=== PATIENT | female | born 1955 | race Caucasian/White ===

== ENCOUNTER 2019-05-20 15:21 | Observation (INO) | payer MEDICARE, SELFPAY ==
[2019-05-17 11:15] VITALS: BMI 30.8
--- NOTE | 2019-05-17 11:31 | ECG_ITS ---
Measurements Intervals [place] Rate: 70 P: 50 MI: 141 QRS: 11 QRSD: 86 T: 68 QT: 353 QTc: 383 SINUS RHYTHM POSSIBLE RIGHT VENTRICULAR CONDUCTION DELAY [RSR (QR) IN V1/V2] No previous ECG available for comparison Electronically Signed On 05-17-2019 15:08:35 METAL PATTERNMAKER by Bee Tompkins M.D. [email or web address]
--- NOTE | 2019-05-17 12:17 | ANES.PREANES ---
Pre-Anesthetic Assessment Pre-Anesthetic Assessment: Height/Weight: Height 1.78 m Weight 97.522 kg Proposed Procedure: Operation Date: 05/20/19 13:05 Proposed Procedures p Dorsal Column Stimulator Insertion(Not Applicable) - Ronan Livingston MD Social: Social History: Alcohol and No tobacco Exam: Pre-Anes Outpt Exam: alert, oriented x 3, clear to auscultation bilaterally and regular rate & rhythm Airway: Submandibular: WNL Cervical ROM: Other (very poor) MP: 2 Dentition: Partials History/ROS: No significant history except as noted CV/HEM: CV/HEM: Afib Musc/skel: Musc/skel: Lower Back Pain Anesthetic Plan: ASA status: II Anesthesia: MAC Risk of > 500 ml blood loss (7ml/kg in children): No PFSH Anesthesia PFSH: Medical History (Updated 05/17/19 @ 12:18 by Seng Kline MD) Atrial fibrillation and flutter (Acute) CAD (coronary artery disease) (Acute) Cervical disc disorder with myelopathy of mid-cervical region (Acute) Cervical disc disorder with radiculopathy, unspecified cervical region (Acute) Hyperlipidemia (Acute) Intervertebral disc disorder with radiculopathy of lumbar region (Acute) Intervertebral disc disorder with radiculopathy of lumbosacral region (Acute) Lumbar back pain (Acute) Lumbar disc disease (Acute) Neck muscle spasm (Acute) Stenosis of cervical spine with myelopathy (Acute) Surgical History (Updated 05/17/19 @ 12:18 by Seng Kline MD) History of arthroscopy of right shoulder (Acute) History of bunionectomy of left great toe (Acute) History of fusion of cervical spine (Acute) History of hysterectomy (Acute) History of orthopedic surgery (Acute) History of tonsillectomy and adenoidectomy (Acute) History of tubal ligation (Acute) Family History (Updated 05/17/19 @ 10:48 by [employer]) Father Diabetes Hypertension Hyperlipidemia Mother Hyperlipidemia Social History (Updated 05/17/19 @ 10:49 by [employer]) Smoking and tobacco status: never smoked Alcohol intake: current Alcohol intake frequency: few times a week Alcohol type: wine Substance/Drug Use: never Data Anesthesia Cardiac Studies: No Data to Display
[2019-05-20] VITALS (17 sets, daily range): BP systolic 133–152; BP diastolic 75–97; PULSE 74–87; RESP 12–20; TEMP 36.3–36.9; O2SAT 89–100
--- NOTE | 2019-05-20 | SCC_ITS ---
PROCEDURE PERFORMED: 1. Thoracic laminotomy with placement of intraspinal, epidural paddle electrode arrays ([employer] CoverEdge 32 instructor adjunct surgical technician). 2. Placement of subcutaneous programmable pulse generator with connection to intraspinal epidural electrode arrays ([employer] Spectra WaveWriter). 30.6 seconds of fluoroscopic guidance, for a cumulative dose of 7.66mGy, was provided to Dr. Livingston by the radiology department. C-arm images of the Lumbar spine were saved for the patient's permanent record. PRINCE
--- NOTE | 2019-05-20 | XR_ITS ---
WS: [id number] Lumbar spine and lower thoracic spine C-arm images, 05/20/2019, Clinical Data: DORSAL COLUMN STIMULATOR Comparison: None. Findings: The stimulator wires have been inserted ending in the superior aspect of the T8 vertebral body. 30.6 seconds of fluoroscopy time was utilized. XR/XR lumbar spine 1V 09141 Impression: Insertion of dorsal thoracic epidural stimulator wires.
--- NOTE | 2019-05-20 10:18 | P.DS_ITS ---
Discharge Providers Date of Admission: 05/20/19 15:21 Date of Discharge: 05/20/19 Attending Provider at Admission: Ronan Livingston Attending Provider at Discharge: Ronan Livingston Diagnoses at Discharge Discharge Diagnosis (1) Intervertebral disc disorder with radiculopathy of lumbar region: Status: Acute Problem details: Patient is doing well after thoracic laminotomy for placement of intraspinal, epidural paddle electrode arrays and placement of subcutaneous programmable pulse generator performed earlier today (05/20/2019). She is requesting discharge home this evening. Reason for Visit Reason for Visit: Reason For Visit: Intervertebral Disc Disorder With Radiculopathy Bas[place] Brief History: The patient is a 64-year-old female with refractory back, tailbone, and predominantly left lower extremity pain complaint s. She underwent an extensive imaging workup. Conservative treatment trials failed to provide adequate lasting symptom relief. She obtained marked relief of chronic low back and lower extremity pain during a percutaneous trial of thoracic spinal cord stimulation. After review of the diagnostic and treatment options with the risks/potential benefits/rationale for each, the patient requested to proceed with placement of epidural paddle electrode arrays and a subcutaneous programmable pulse generator for chronic spinal cord stimulation therapy. Hospital Course Hospital Course: Patient underwent thoracic laminotomy with placement of intraspinal, epidural paddle electrode arrays and placement of subcutaneous programmable pulse generator on 05/20/2019. She tolerated the procedure well. She noted relief of chronic lower extremity pain with postoperative use of the device. She completed perioperative intravenous antibiotic doses. She was ambulatory, voiding, and tolerating regular diet prior to requested discharge home on the evening of the date of surgery. Physical Exam Const: GENERAL APPEARANCE: cooperative ORIENTATION/CONSCIOUSNESS: Yes awake Neck/C-Spine: COMMON NORMALS: supple Resp: COMMON NORMALS: normal respiratory effort; negative for no use of accessory muscles Back/Pelvis: BACK IMAGE (FEMALE): 1. Surgical site 2. Surgical site Neuro: COMMON NORMALS: moves all extremities and no focal motor deficits Psych: COMMON NORMALS: thought process normal and speech normal ATTITUDE: Yes calm and Yes engaged ACTIVITY/MOTOR BEHAVIOR: Yes appropriate eye contact SPEECH: Yes normal speech MOOD & AFFECT: Yes euthymic mood THOUGHT PROCESS: normal thought process INSIGHT: insight good JUDGEMENT: judgment good Skin: WOUNDS: Yes surgical site (Surgical site dressings clean/dry/intact) Discharge Data Data Completed and Pending: Completed Studies During Hospitalization Category Date Time Status XR lumbar spine 1 V 74293 Routine Exams 05/20/19 Completed Procedures Performed: Thoracic laminotomy with placement of intraspinal, epidural paddle electrode arrays ([employer] CoverEdge 32 director medical surgical). Placement of subcutaneous programmable pulse generator ([employer] WaveWriter). Intravenous antibiotics. Vitals: Last Vital Signs Temp 97.7 F 05/20/19 19:38 Pulse 87 05/20/19 19:38 Resp 18 05/20/19 19:38 BP 138/82 05/20/19 19:38 Pulse Ox 95 05/20/19 19:38 Discharge Plan Discharge Patient Disposition: Home, Self-Care Condition: Stable Prescriptions: New hydrocodone-acetaminophen 10-325 mg Tablet 1 tab PO TID PRN (Reason: Pain) Qty: 20 RF: 0 Continued cyclobenzaprine 10 mg tablet 10 mg PO DAILY RF: 0 tizanidine 4 mg tablet 4 mg PO DAILY RF: 0 acyclovir 200 mg capsule 200 mg PO BID RF: 0 ezetimibe 10 mg tablet 10 mg PO DAILY RF: 0 Curcumin 500 mg PO DAILY RF: 0 Vitamin C 1,000 mg PO DAILY RF: 0 acai oneal extract 1,000 mg PO DAILY RF: 0 turmeric 500 mg PO DAILY RF: 0 Discontinued hydrocodone-acetaminophen 10-325 mg tablet 1 tab PO BID RF: 0 Discharge Orders: Discharge Order (Routine); Ordered 05/20/19 Ordered By: Ronan Livingston Referrals: Ronan Livingston MD [Primary Care Provider] - 2 weeks (PLEASE CALL DR. HOLDEN OFFICE TOMORROW MORNING TO SET UP A FOLLOW UP APPOINTMENT.) Discharge Diet: Usual diet Discharge Activity: Limit activity as instructed Patient Instructions: Surgical Site Infections (GEN) Activity Restrictions/Additional Instructions: Followup in 2 weeks. Call [phone] with any questions or concerns. Discharge Date/Time: 05/20/19 20:29 Discharge Attestations Time Spent in Discharge Care*: other (Postoperative global.) Status at Discharge: Cognitive status at discharge: cognitively intact , Behavioral status at discharge: cooperative , Overall status at discharge: other (Good, with relief of preoperative lower extremity pain with use of the spinal cord stimulation device.) Quality Metrics Clinical Quality Measures During this hospital stay, did patient experience: None Coding Level of Care Code Acute Building Insulation Installer for g Fwd Exam Problem Focused Diagnoses Intervertebral disc disorder with radiculopathy of lumbar region M51.16
[2019-05-20] MEDS: sodium chloride 0.9% 1,000 ML 30 ML IV (10:39)
[2019-05-20] MEDS: vancomycin 1,000 MG in sodium chloride 0.9% 250 ML 250 MG IV (11:37)
--- NOTE | 2019-05-20 15:37 | SUR.PHASEI ---
[employer] rep activated stimulator
[2019-05-20] MEDS: morphine 4 mg/mL SDV 1 mL 2 MG IVP ×2 (15:43→15:48)
[2019-05-20] MEDS: HYDROcodone-acetaminophen 7.5-325 mg Tablet PO (16:33)
[2019-05-20] MEDS: ketorolac 30 mg/mL INJ 15 MG IVP (16:33)
--- NOTE | 2019-05-20 16:34 | P.OP_ITS ---
Operative Report Post-Operative Note: Date of procedure: 05/20/19 Operative Report: Procedure: DATE OF OPERATION: 05/20/2019 DATE OF DICTATION: 05/20/2019 PREOPERATIVE DIAGNOSES: Lumbar disc disorder with radiculopathy POSTOPERATIVE DIAGNOSES: Lumbar disc disorder with radiculopathy PROCEDURE PERFORMED: 1. Thoracic laminotomy with placement of intraspinal, epidural paddle electrode arrays ([employer] CoverEdge 32 surgical pathologist). 2. Placement of subcutaneous programmable pulse generator with connection to intraspinal epidural electrode arrays ([employer] Spectra WaveWriter). SURGEON: Mikhail Livingston M.D. ANESTHESIA: Local, with monitored anesthesia care. ESTIMATED BLOOD LOSS: 20 milliliters. INDICATIONS FOR PROCEDURE: The patient is a 64-year-old female with refractory back, tailbone, and predominantly left lower extremity pain complaints. She underwent an extensive imaging workup. Conservative treatment trials failed to provide adequate lasting symptom relief. She obtained marked relief of chronic low back and lower extremity pain during a percutaneous trial of thoracic spinal cord stimulation. After review of the diagnostic and treatment options with the risks/potential benefits/rationale for each, the patient requested to proceed with placement of epidural paddle electrode arrays and a subcutaneous programmable pulse generator for chronic spinal cord stimulation therapy. DESCRIPTION OF PROCEDURE: After routine preoperative evaluation and informed consent were obtained, the patient was taken to the Operating Room and positioned prone on the operating table. Chest and pelvic bolsters were positioned to ensure the abdomen was decompressed. All pressure points were padded. The patient reported the position to be comfortable. She was maintained under varying levels of intravenous sedation by Anesthesia personnel. The planned left flank pulse generator placement incision was marked with a skin marker. A planned midline posterior thoracic incision was likewise marked, after intraoperative localization with fluoroscopy. The patient's lead location during the successful percutaneous trial was utilized to guide placement for the permanent implant. The posterior thorax and flank areas were scrubbed with Betadine and prepped with DuraPrep. Sterile towels and drapes were applied, and an [place] surgical barrier was placed. The proposed midline thoracic incision was infiltrated with 1% Xylocaine with epinephrine. A skin incision was made and carried down into the subcutaneous tissues. The deep fascial plane was identified and divided in the midline. A left-sided subperiosteal dissection was carried down along the lamina at what appeared by intraoperative fluoroscopy to be T9/10. Deep self-retaining retractors were placed to maximize the operative exposure. A laminotomy was fashioned with Kerrison rongeurs. Ligamentum flavum was resected at the base of the laminotomy site. The hockey-stick dural separator was advanced into the dorsal epidural space without resistance, and then removed. The [employer] CoverEdge 32, 50 cm, 4 x 8 surgical pathologist was then advanced into the dorsal epidural space. Intraoperative fluoroscopy suggested extension into the lateral gutter on the right. The lead was repositioned, with fluoroscopic localization demonstrating a position just left of midline with the cephalad extent of the lead approximating the top of T8. Anesthesia personnel diminished the patient's sedation until she was awake and conversant. The lead tails were connected to extension cables, and intraoperative spinal cord stimulation was performed. The patient reported good paresthesia coverage of her chronic low back and lower extremity pain sites. Lead impedances were good. The patient's sedation was deepened. The wound was copiously irrigated with sterile saline and antibiotic irrigation. The fascia was closed utilizing 2-0 Vicryl Plus in a simple interrupted fashion. CLIK lead anchors were placed over 2 of the 4 lead tails, and secured at the fascial entry point with Fixate suture devices. The lead - anchor - fascial interfaces were manipulated and found to be secure. Intraoperative fluoroscopy verified a stable lead position. Strain relief loops of the lead tails were fashioned within the subcutaneous space at the thoracic incision site. The left flank incision site was prepared by infiltration with 1% Xylocaine with epinephrine. A n incision was then made, and a subcutaneous pocket was created of adequate size to accommodate the pulse generator. The subcutaneous tunneling tool was utilized to create a subcutaneous passage between the thoracic and left flank incisions. Lead tails were advanced through the subcutaneous tunnel utilizing the tunneling tool. The lead tails were advanced into the appropriate ports on the [employer] WaveWriter pulse generator. An impedance check demonstrated no lead faults. The connection sites were secured with set screws and the torque wrench. The connection sites were manipulated and found to be secure. An impedance check again identified no lead faults. The left flank subcutaneous pocket and the thoracic incision site were copiously irrigated with antibiotic irrigation. Hemostasis was ensured. The pulse generator was placed within the left flank subcutaneous pocket with excess lead coiled deep/adjacent to the device. The pulse generator was anchored to the superficial fascia with a single Silk suture. The site was again irrigated with antibiotic irrigation. Wound closure was performed in multiple layers with 2-0 Vicryl Plus simple interrupted closure of the dermis. Intraoperative fluoroscopy was again utilized to verify a stable lead position. Final skin closure was performed at both incision sites with 3-0 Vicryl Plus in a running subcuticular pattern. Steri-Strips were applied, and sterile dressings were placed. The patient was then rotated onto the Recovery Room cart in the supine position. She tolerated the procedure well. COMPLICATIONS: There were no known complications. COUNTS: All sponge, needle and instrument counts were correct at the completion of the procedure. Coding Level of Care Code Acute Metrology Technician for Elian Warner
--- NOTE | 2019-05-20 16:38 | SUR.PHASEI ---
PT DESCRIBED PAIN MUSCLE CRAMP, PT STATES PO MUSCLE RELAXER WORKS BETTER FOR HER
[2019-05-20] MEDS: lactated ringers 1,000 ML 90 ML IV (16:44)
== END 2019-05-20 20:29 | disposition home or self-care (01) ==
LOC: MEDSURG 15:22
PROVIDERS: Admitting Provider Specialist; Family Provider Family Medicine; PCP Specialist; Visit Provider Specialist
PROC: (CPT 63655; principal; 2019-05-20 12:55)
DX: M51.16 Intervertebral disc disorders with radiculopathy, lumbar region (principal); I48.91 Unspecified atrial fibrillation; I25.10 Atherosclerotic heart disease of native coronary artery without angina pectoris; E78.5 Hyperlipidemia, unspecified; Z83.3 Family history of diabetes mellitus; Z82.49 Family history of ischemic heart disease and other diseases of the circulatory system; G47.30 Sleep apnea, unspecified
CPT/HCPCS: 63655; 63685; 72020; 76000; 93005; 96365; 96366; 99221; C1778; C1820; C1883; G0378; J0690; J1885; J2001; J2270; J2704; J3010; J3370; J3490; J7030; J7050

== ENCOUNTER 2021-04-14 08:36 | Outpatient (CLI) | payer MEDICARE, SELFPAY ==
--- NOTE | 2021-04-14 08:51 | IR_ITS ---
WS: [id number] THORACIC AND LUMBAR MYELOGRAMs HISTORY: PAIN IN THORACIC Spine, spondylosis WITH RADICULOPATHY LUMBAR COMPARISON: None available. FLUOROSCOPY TIME: 1.7 minutes. Procedure, risks and complications were explained to the patient. Risks including bleeding, infection , headaches, allergic reaction and seizures. Consent has been obtained. With the patient in prone position the skin over the lumbar region is cleansed with ChloraPrep and an esthetized with lidocaine. 22-gauge spinal needle is inserted into the thecal sac at the appropriate level determined by fluoroscopy. Omnipaque 240; 13 ml is injected slowly under fluoroscopy with no co mplications. Needle bevel is perpendicular to the longitudinal fibers of the dura. Stylet is reinsert ed prior to removal of the needle. Patient tolerated the procedure well. Patient will proceed to CT f or further evaluation. Uncomplicated injection into the thecal sac.The thoracic vertebral bodies are normally aligned. There is mild diffuse disc space narrowing and endplate osteophytes throughout the thoracic spine. Dorsal column stimulator electrodes are noted at the T8-9 level. Pedicles are all identified. Well-rounded h igh density nodule overlying the LEFT lateral T12-L1 disc is contrast filling a nerve root diverticul um. Posterior lumbar alignment is normal. Mild disc space narrowing at L3-4. Discontinuity of the con trast at L3-4 and L4-5 levels. Only mild stenosis is noted on the CT at these levels. No instability. Prior anterior cervical fusion is noted from C3 to C5. Interbody spacers at C3-4 and C4-5. Moderate d isc space narrowing at C5-6 and C6-7 with anterior osteophytes. IR/IR myelogram spine thorac/lumb IMPRESSION: 1. Uncomplicated thoracic and lumbar myelograms. 2. Dorsal column stimulator electrodes at the T8-9 level with no complications . 3. Mild spondylitic changes throughout the thoracic and lumbar spines with no fractures. 4. No lumbar spine instability.
--- NOTE | 2021-04-14 08:52 | CT_ITS ---
WS: [id number] CT MYELOGRAM LUMBAR SPINE HISTORY: PAIN IN THORACIC Spine, spondylosis WITH RADICULOPATHY LUMBAR TECHNIQUE: Contiguous 2.5 mm axial imaging performed from T12 through the mid sacral level. Bone and soft tissue windows reviewed. Sagittal and coronal reformats are submitted and reviewed. DLP: 1717.[address] scans at [facility] use at least one of these dose optimization techniques: automated e xposure control; mA and/or kV adjustment per patient size (includes targeted exams where dose is matc hed to clinical indication); or iterative reconstruction. COMPARISON: 01/14/2019 Good opacification of the thecal sac with contrast from the myelogram. Posterior lumbar alignment is normal. No fractures. Disc space narrowing and desiccation with vacuum disc phenomenon at L3-4. L1-L2: Small posterior vertebral body osteophytes with no stenosis. L2-L3: Mild annular disc bulging. Mild facet and ligamentum flavum arthritis with no stenosis. L3-L4: Mild osteophytic ridging and moderate annular disc bulging. Central disc protrusion contacts t he ventral thecal sac with mild displacement and effacement. There is very mild contact on the lilly sing L4 nerve roots bilaterally. Small RIGHT foraminal disc protrusion causing mild foraminal narrowi ng. There is mild central, bilateral subarticular recess and RIGHT foraminal narrowing. L4-L5: Diffuse osteophytic ridging is mild with annular disc bulging. RIGHT foraminal disc protrusion with mild contact on the traversing RIGHT L5 nerve root and mild RIGHT foraminal narrowing. L5-S1: Mild annular disc bulging and osteophytic ridging.. Mild encroachment upon the lateral recesse s. Very mild LEFT foraminal narrowing is similar to the prior study due to disc and osteophyte diseas e. Mild facet joint arthritis. Prominent soft tissue causing mild expansion of the RIGHT S2 neural foramen is a Tarlov cyst. CT/CT lumbar spine w con [id number] IMPRESSION: 1. Mild progression of degenerative disc disease and vacuum disc phenomenon at L3-4 since 01/14/2019. 2. Mild central, bilateral subarticular recess and RIGHT foraminal stenosis at L3-4 with mild progression since the prior study. Small RIGHT foraminal disc p rotrusion is new. 3. RIGHT foraminal disc protrusion at L4-5 with mild contact on the traversing RIGHT L5 nerve root and mild RIGHT foraminal stenosis. Similar to the prior st udy. 4. Mild LEFT foraminal stenosis at L5-S1 due to combination of facet disease, osteophytes and disc disease. No change.
--- NOTE | 2021-04-14 08:52 | CT_ITS ---
WS: [id number] CT THORACIC MYELOGRAM HISTORY: PAIN IN THORACIC Spine, spondylosis WITH RADICULOPATHY LUMBAR TECHNIQUE: Contiguous 2.5 mm axial images are reviewed to thoracic spine. Images are reformatted in s agittal and coronal planes. All CT scans at [facility] use at least one of these dose optimiz ation techniques: automated exposure control; mA and/or kV adjustment per patient size (includes targ eted exams where dose is matched to clinical indication); or iterative reconstruction. DLP: 971.62 mGy-cm. COMPARISON: MRI 12/27/2018 Again noted are 13 rib-bearing thoracic vertebral bodies. Dorsal column stimulator electrodes and wir es are noted at the T8-9 level in appropriate position. There is good distention of the thecal sac wi th the contrast from the myelogram. No compression upon the cord. No cord atrophy or enlargement. Very mild facet joint arthritis throughout the thoracic spine. Contrast surrounds the thecal sac. No focal disc protrusions or herniations. Very small osteophyte just to the RIGHT of midline at T8-9. No cord contact. Mild atherosclerosis and ectasia thoracic aorta. No aneurysm. CT/CT thoracic spine w con [id number] IMPRESSION: 1. Status post dorsal column stimulator projects posterior to T8-9 in good pos ition. 2. No central or foraminal stenosis or significant disc protrusions throughout the thoracic spine.
[2021-04-14] MEDS: iohexol 240 mg/mL 50 mL Btl INTRATHECA (09:42)
== END 2021-04-14 08:37 | disposition home or self-care (01) ==
PROVIDERS: PCP Family Medicine; Visit Provider Specialist
DX: M47.16 Other spondylosis with myelopathy, lumbar region (principal); M51.36 Other intervertebral disc degeneration, lumbar region; M48.061 Spinal stenosis, lumbar region without neurogenic claudication; M51.26 Other intervertebral disc displacement, lumbar region; M48.07 Spinal stenosis, lumbosacral region
CPT/HCPCS: 62305; 72120; 72129; 72132; Q9966